=== PATIENT | male | born 2000 | race Caucasian/White ===

== ENCOUNTER 2021-04-02 11:09 | Emergency (ER) | payer MEDICAID ==
[~2021-04-02] VITALS: Ht 172.7 cm; Wt 98.9 kg
[2021-04-02 11:14] VITALS: BP 135/68
--- NOTE | 2021-04-02 11:30 | NUR ---
DR. FREY BEDSIDE EVAULUATING PT
--- NOTE | 2021-04-02 11:30 | NUR ---
20 Y/O M BIB MOTHER FROM HOME, C/O N/V/D AND "ANXIETY AND PAIN ON MY RIGHT SIDE WHEN I POOP" FOR 2 WEEKS. PT STATES HE EXPERINCES PAIN ON HIS R SIDE THAT RADIATES ACROSS HIS ENTIRE ABDOMEN. PT STATES THE PAIN HAS BEEN THERE X2 WEEKS AND FOR THE LAST WEEK HE HAS BEEN EXPERICING DIARRHEA. PT STATES SINCE FRIDAY HE HAS +N/+V WITH X2-3 EPISODES OF VOMITTING A DAY SINCE FRIDAY. PT STATES "THIS MORNING THE VOMIT HAS A RED TINGE, WHEN NORMALLY IT IS YELLOW" PMH: GASTRITIS MED: DENIES NKA
--- NOTE | 2021-04-02 12:04 | NUR ---
US BEDSIDE WITH PT.
--- NOTE | 2021-04-02 12:07 | NUR ---
BLOOD TAKEN BEDSIDE AND WALKED OVER TO LAB
[2021-04-02 12:12] LABS: BASOPHILS % (AUTO) 0.4 % (0.0-2.0); EOSINOPHILS # (AUTO) 0.1 K/uL (0-0.4); EOSINOPHILS % (AUTO) 1.1 % (0.0-4.0); HEMATOCRIT 45.1 % (36-52); HEMOGLOBIN 15.1 g/dL (12.0-18.0); LYMPHOCYTES # (AUTO) 2.1 K/uL (2.0-11.5); LYMPHOCYTES % (AUTO) 32.8 % (20.5-51.1); MEAN CORPUSCULAR HEMOGLOBIN 32 pg (27-31); MEAN CORPUSCULAR HGB CONC 34 g/dL (33-37); MEAN CORPUSCULAR VOLUME 94.2 fL (80-94); MONOCYTES # (AUTO) 0.4 K/uL (0.8-1.0); MONOCYTES % (AUTO) 6.3 % (1.7-9.3); NEUTROPHILS # (AUTO) 3.9 K/uL (1.8-7.7); NEUTROPHILS % (AUTO) 59.4 % (42.2-75.2); PLATELET COUNT (AUTO) 243 K/uL (140-450); RED BLOOD CELL COUNT(AUTO) 4.78 MIL/uL (4.20-6.10); RED CELL DISTRIBUTION WIDTH 12.9 % (11.6-13.7); WHITE BLOOD COUNT (AUTO) 6.5 K/uL (4.5-11.0)
[2021-04-02 12:33] LABS: ALBUMIN 4.3 g/dL (3.4-5.0); ANION GAP 8.2 (8-16); CARBON DIOXIDE 29.9 mmol/L (21-32); CREATININE 0.9 mg/dL (0.6-1.3); POTASSIUM 4.1 mmol/L (3.5-5.1); TOTAL BILIRUBIN 0.3 mg/dL (0.0-1.0)
[2021-04-02] MEDS ORDERED: PANT40EC PO (12:36)
[2021-04-02] MEDS ORDERED: ONDA-24 PO (12:36)
--- NOTE | 2021-04-02 12:55 | NUR ---
PT AMBULATED TO RESTROOM. GAIT STEADY
--- NOTE | 2021-04-02 12:59 | NUR ---
PT AMBULATED TO BED 11. GAIT STEADY
--- NOTE | 2021-04-02 13:09 | NUR ---
Pt sitting on bed, VSS, will continue to monitor.
[2021-04-02 13:20] VITALS: BP 127/72
--- NOTE | 2021-04-02 13:20 | NUR ---
Patient discharged with v/s stable. Written and verbal after care instructions given GASTRITIS and explained. Patient alert, oriented and verbalized understanding of instructions. Ambulatory with steady gait. All questions addressed prior to discharge. ID band removed. Patient advised to follow up with PMD. Rx of PANTOPRAZOLE 40MG PO DAILY, AND ZOFRAN ODT 4MG PO Q8H PRN N/V given. Patient educated on indication of medication including possible reaction and side effects. Opportunity to ask questions provided and answered.
== END 2021-04-02 13:20 | disposition home or self-care (01) ==
LOC: MED 11:09
DX: K29.70 Gastritis, unspecified, without bleeding (principal); Z79.899 Other long term (current) drug therapy
CPT/HCPCS: 36415; 76705; 80053; 81002; 83690; 85025; 99284

== ENCOUNTER 2021-04-19 07:21 | Emergency (ER) | payer MEDICAID ==
[~2021-04-19] VITALS: Ht 175.3 cm; Wt 98.0 kg
[~2021-04-19 07:21] MED LIST: ONDA-24 PO; PANT40EC PO
[2021-04-19 07:24] VITALS: BP 136/83
--- NOTE | 2021-04-19 07:30 | NUR ---
PATIENT AMBULATED TO BED 8. HANDED ON URINE CUP.
--- NOTE | 2021-04-19 07:33 | NUR ---
Patient being evaluated by DR GEORGE at bedside.
[2021-04-19] MEDS ORDERED: DICYCLOMINE HCL LIQUID 20 MG, ALUMINUM HYD/MAG/SIMETHICONE 30 ML, LIDOCAINE VISCOUS 2% ... PO ONE ×3 (07:35)
[2021-04-19] MEDS ORDERED: ONDANSETRON 4 MG ODT PO ONE (07:35)
[2021-04-19] MEDS ORDERED: DICYCLOMINE HCL LIQUID 10 MG/5 ML UDC ONE (07:44)
[2021-04-19] MEDS ORDERED: ALUMINUM HYD/MAG/SIMETHICONE 30 ML UDC ONE (07:44)
--- NOTE | 2021-04-19 07:56 | NUR ---
20YO M C/O VOMITING SINCE THIS AM. PT REPORTS VOMITING BILE AND RED-COLORED VOMITUS, UNSURE IF IT WAS BLOOD. PT STATES THAT HE HAS BEEN EXPERIENCING LOSS OF APPETITE X 4 DAYS. ALSO COMPLAINS OF ABDOMINAL DISCOMFORT, BUT DENIES ABDOMINAL PAIN. LBM WAS YESTERDAY WITH HARD, SMALL STOOLS. IN ED, VSS. NO ACTIVE VOMITING NOTED. ABDOMEN TENDER ON RUQ AND LUQ. PT CHANGED INTO PT'S GOWN. ERMD MADE AWARE OF PT STATUS. PMH: GASTRITIS (1 MONTH AGO) MEDS: PANTOPRAZOLE, ONDANSETRON NKA
--- NOTE | 2021-04-19 08:49 | NUR ---
no pain at this time.
[2021-04-19 09:08] LABS: ANION GAP 13.3 (8-16); CARBON DIOXIDE 27.7 mmol/L (21-32); CREATININE 1.1 mg/dL (0.6-1.3)
[2021-04-19 09:14] LABS: ALBUMIN 3.9 g/dL (3.4-5.0); BASOPHILS % (AUTO) 0.4 % (0.0-2.0); EOSINOPHILS % (AUTO) 0.6 % (0.0-4.0); HEMATOCRIT 43.5 % (36-52); HEMOGLOBIN 14.9 g/dL (12.0-18.0); LYMPHOCYTES # (AUTO) 1.6 K/uL (2.0-11.5); LYMPHOCYTES % (AUTO) 25.2 % (20.5-51.1); MEAN CORPUSCULAR HEMOGLOBIN 32 pg (27-31); MEAN CORPUSCULAR HGB CONC 34 g/dL (33-37); MEAN CORPUSCULAR VOLUME 92.5 fL (80-94); MONOCYTES # (AUTO) 0.5 K/uL (0.8-1.0); MONOCYTES % (AUTO) 7.5 % (1.7-9.3); NEUTROPHILS # (AUTO) 4.2 K/uL (1.8-7.7); NEUTROPHILS % (AUTO) 66.3 % (42.2-75.2); PLATELET COUNT (AUTO) 238 K/uL (140-450); RED CELL DISTRIBUTION WIDTH 12.7 % (11.6-13.7); TOTAL BILIRUBIN 0.7 mg/dL (0.0-1.0); WHITE BLOOD COUNT (AUTO) 6.3 K/uL (4.5-11.0)
[2021-04-19] MEDS ORDERED: ONDA-24 PO (09:54)
[2021-04-19] MEDS ORDERED: MAG-27 PO (09:54)
[2021-04-19 10:15] VITALS: BP 136/83
--- NOTE | 2021-04-19 10:16 | NUR ---
Patient discharged with v/s stable. Written and verbal after care instructions given and explained. Patient alert, oriented and verbalized understanding of instructions. Ambulatory with steady gait. All questions addressed prior to discharge. ID band removed. Patient advised to follow up with PMD. Rx of SARA HILLIARD given. Patient educated on indication of medication including possible reaction and side effects. Opportunity to ask questions provided and answered.
== END 2021-04-19 10:16 | disposition home or self-care (01) ==
LOC: MED 07:21
DX: R10.10 Upper abdominal pain, unspecified (principal); R63.0 Anorexia
CPT/HCPCS: 36415; 80053; 83690; 85025; 99283; Q0162

== ENCOUNTER 2022-01-15 07:21 | Emergency (ER) | payer MEDICAID ==
[~2022-01-15] VITALS: Ht 175.3 cm; Wt 103.6 kg
[~2022-01-15 07:21] MED LIST changes: +MAG-27 PO; +ONDA-188 PO; -ONDA-24 PO
[2022-01-15 07:24] VITALS: BP 110/74
--- NOTE | 2022-01-15 07:28 | NUR ---
PT AMB TO BED 4.
--- NOTE | 2022-01-15 07:45 | NUR ---
DR. WATTS AT PT BEDSIDE FOR FURTHER EVALUATION.
--- NOTE | 2022-01-15 07:49 | NUR ---
21 Y/O MALE C/O LOWER BACK PAIN X 2 WEEKS S/P LIFTING HEAVY BOXES. DENIES DYSURIA. DENIES FEVER/CHILLS. DENIES N/V/D. PMH: GASTRITIS NKA
[2022-01-15] MEDS ORDERED: NAPR-1704 PO (07:55)
--- NOTE | 2022-01-15 08:01 | NUR ---
Patient discharged with v/s stable. Written and verbal after care instructions ABOUT ACUTE BACK PAIN AND BACK EXERCISES given and explained. Patient alert, oriented and verbalized understanding of instructions. Ambulatory with steady gait. All questions addressed prior to discharge. ID band removed. Patient advised to follow up with PMD. Rx of NAPROXEN given. Opportunity to ask questions provided and answered.
[2022-01-15 08:03] VITALS: BP 110/74
--- NOTE | 2022-01-15 08:06 | NUR ---
The patient's care was reviewed and supervised by Carina Osman RN.
== END 2022-01-15 08:01 | disposition home or self-care (01) ==
LOC: MED 07:21
DX: M54.50 Low back pain, unspecified (principal)
CPT/HCPCS: 99282

== ENCOUNTER 2022-07-13 03:06 | Emergency (ER) | payer MEDICAID ==
[~2022-07-13] VITALS: Ht 175.3 cm; Wt 109.9 kg
[~2022-07-13 03:06] MED LIST changes: +NAPR-1704 PO
[2022-07-13 03:19] VITALS: BP 133/80
--- NOTE | 2022-07-13 03:30 | NUR ---
PATIENT ESCORTED TO ROOM 10, MOTHER AT HIS SIDE
[2022-07-13 03:38] VITALS: BP 139/93
--- NOTE | 2022-07-13 03:53 | NUR ---
DR GEORGE AT BEDSIDE
[2022-07-13] MEDS ORDERED: NACL 0.9% 1,000 ML IV ONE (04:00)
[2022-07-13] MEDS ORDERED: METOCLOPRAMIDE 10 MG/2 ML INJ VIAL IVP ONE (04:00)
[2022-07-13] MEDS ORDERED: MORPHINE SULFATE 4 MG/ML SYR IVP ONE (04:00)
[2022-07-13] MEDS ORDERED: diphenhydrAMINE 50 MG/ML VIAL IVP ONE (04:00)
--- NOTE | 2022-07-13 04:00 | NUR ---
ASSUME CARE OF PT, PT C/O LEFT EYE PAIN, STARTED WHILE HE WAS WATCHING TV, HX-MIGRAINS.
[2022-07-13] MEDS ORDERED: KETOROLAC 30 MG/ML VIAL IVP ONE (04:50)
--- NOTE | 2022-07-13 05:25 | NUR ---
PT STATES PAIN HAS REDUCE, STILL HAS SOME DIZZINESS.
[2022-07-13] MEDS ORDERED: ACET-9234 PO (05:35)
[2022-07-13] MEDS ORDERED: METO-485 PO (05:35)
--- NOTE | 2022-07-13 06:05 | NUR ---
Patient discharged with v/s stable. Written and verbal after care instructions given and explained. Patient alert, oriented and verbalized understanding of instructions. Ambulatory with steady gait. All questions addressed prior to discharge. ID band removed. Patient advised to follow up with PMD. Rx SENT TO PHARMACY. Patient educated on indication of medication including possible reaction and side effects. Opportunity to ask questions provided and answered.
[2022-07-13 06:08] VITALS: BP 128/64
== END 2022-07-13 06:00 | disposition home or self-care (01) ==
LOC: MED 03:06
DX: R51.9 Headache, unspecified (principal); R11.2 Nausea with vomiting, unspecified; Z79.899 Other long term (current) drug therapy
CPT/HCPCS: 70450; 96361; 96374; 96375; 99284; J1200; J1885; J2765; J7030

== ENCOUNTER 2023-02-26 09:32 | Emergency (ER) | payer MEDICAID, OTHER ==
[~2023-02-26] VITALS: Ht 177.8 cm; Wt 114.3 kg
[~2023-02-26 09:32] MED LIST changes: +ACET-9234 PO; +METO-485 PO
[2023-02-26 09:36] VITALS: BP 132/63
--- NOTE | 2023-02-26 10:03 | NUR ---
MD at bedside assessing patient
[2023-02-26] MEDS ORDERED: FAMOTIDINE 20 MG TAB PO ONE (10:10)
[2023-02-26] MEDS ORDERED: ALUMINUM HYD/MAG/SIMETHICONE 30 ML UDC PO ONE (10:10)
[2023-02-26] MEDS ORDERED: OMEP40EC24 PO (10:12)
[2023-02-26] MEDS ORDERED: ONDA-188 PO (10:12)
[2023-02-26 10:26] VITALS: BP 130/63
--- NOTE | 2023-02-26 10:26 | NUR ---
Patient discharged with v/s stable. Written and verbal after care instructions given and explained. Patient alert, oriented and verbalized understanding of instructions. Ambulatory with steady gait. All questions addressed prior to discharge. ID band removed. Patient advised to follow up with PMD. Rx of prilosec and zofran given. Patient educated on indication of medication including possible reaction and side effects. Opportunity to ask questions provided and answered.
[2023-02-27] MEDS ORDERED: SUCR1TAB35 PO (11:50)
== END 2023-02-26 10:26 | disposition home or self-care (01) ==
LOC: MED 09:32
DX: K29.70 Gastritis, unspecified, without bleeding (principal); R11.2 Nausea with vomiting, unspecified; G43.909 Migraine, unspecified, not intractable, without status migrainosus; F12.90 Cannabis use, unspecified, uncomplicated; Z79.899 Other long term (current) drug therapy
CPT/HCPCS: 99283

== ENCOUNTER 2023-02-27 09:57 | Emergency (ER) | payer OTHER ==
[~2023-02-27] VITALS: Ht 177.8 cm; Wt 112.0 kg
[~2023-02-27 09:57] MED LIST changes: +OMEP40EC24 PO
[2023-02-27 09:58] VITALS: BP 131/88
[2023-02-27] MEDS ORDERED: FAMOTIDINE 20 MG TAB PO ONE (10:45)
[2023-02-27] MEDS ORDERED: ALUMINUM HYD/MAG/SIMETHICONE 30 ML UDC PO ONE (10:45)
--- NOTE | 2023-02-27 11:03 | NUR ---
Pt bibs for abd pain that continued from yesterday. Pt states he wakes up with the pain that he believes is caused by vomiting. Pt has woken up vomiting the past two days. States he has had this issue before and was relieved with zofran. Pt states he is out of zofran. PT a/o x 4, vss, no ss of acute distress, breathing equal and unlabored, speech clear. Medicated as ordered, tolerating well.
[2023-02-27] MEDS ORDERED: SUCR1TAB35 PO (11:50)
[2023-02-27 12:16] VITALS: BP 128/81
--- NOTE | 2023-02-27 12:18 | NUR ---
spoke with pt and gave order for dc. Pt a/o x 4, vss, no ss of acute distress, breathing equal and unlabored, speech clear. Pt states pain has subsided to 09/24. ACI given and reviewed with pt, verbalized understanding and will follow up with primary. Pt aware of px pick and location.
== END 2023-02-27 12:16 | disposition home or self-care (01) ==
LOC: MED 09:57
DX: R10.13 Epigastric pain (principal); R11.2 Nausea with vomiting, unspecified; K21.9 Gastro-esophageal reflux disease without esophagitis; F12.90 Cannabis use, unspecified, uncomplicated; Z79.899 Other long term (current) drug therapy; Z79.1 Long term (current) use of non-steroidal anti-inflammatories (NSAID)
CPT/HCPCS: 99283

== ENCOUNTER 2023-07-04 10:38 | Emergency (ER) | payer OTHER ==
[~2023-07-04] VITALS: Ht 177.8 cm; Wt 108.9 kg
[~2023-07-04 10:38] MED LIST changes: +SUCR1TAB35 PO
[2023-07-04 10:42] VITALS: BP 114/63; PULSE 77; RESP 18; TEMP 97.8; O2SAT 97
[2023-07-04] MEDS ORDERED: ONDANSETRON 4 MG ODT PO ONE (12:20)
[2023-07-04 12:43] LABS: BASOPHILS % (AUTO) 0.2 % (0.0-2.0); EOSINOPHILS # (AUTO) 0.1 K/uL (0-0.4); EOSINOPHILS % (AUTO) 0.6 % (0.0-4.0); HEMATOCRIT 44.4 % (36-52); HEMOGLOBIN 15.2 g/dL (12.0-18.0); LYMPHOCYTES # (AUTO) 1.8 K/uL (2.0-11.5); LYMPHOCYTES % (AUTO) 20.2 % (20.5-51.1); MEAN CORPUSCULAR HEMOGLOBIN 31 pg (27-31); MEAN CORPUSCULAR HGB CONC 34 g/dL (33-37); MEAN CORPUSCULAR VOLUME 91.9 fL (80-94); MONOCYTES # (AUTO) 0.5 K/uL (0.8-1.0); MONOCYTES % (AUTO) 6.1 % (1.7-9.3); NEUTROPHILS # (AUTO) 6.5 K/uL (1.8-7.7); NEUTROPHILS % (AUTO) 72.9 % (42.2-75.2); PLATELET COUNT (AUTO) 253 K/uL (140-450); RED BLOOD CELL COUNT(AUTO) 4.83 MIL/uL (4.20-6.10); WHITE BLOOD COUNT (AUTO) 8.9 K/uL (4.8-10.8)
[2023-07-04 12:56] LABS: ALBUMIN 4.2 g/dL (3.4-5.0); ANION GAP 11.7 (8-16); CALCIUM 9.6 mg/dL (8.5-10.1); CARBON DIOXIDE 29.8 mmol/L (21-32); POTASSIUM 4.5 mmol/L (3.5-5.1); TOTAL BILIRUBIN 0.7 mg/dL (0.0-1.0); TOTAL PROTEIN, SERUM 8.1 g/dL (6.4-8.2)
[2023-07-04 13:41] VITALS: BP 112/63; PULSE 77; RESP 18; TEMP 97.8; O2SAT 99
== END 2023-07-04 13:41 | disposition home or self-care (01) ==
LOC: MED 10:38
DX: K92.0 Hematemesis (principal); K29.70 Gastritis, unspecified, without bleeding; Z79.899 Other long term (current) drug therapy
CPT/HCPCS: 36415; 80053; 83690; 85025; 99283; Q0162

== ENCOUNTER 2023-10-02 15:11 | Emergency (ER) | payer OTHER ==
[~2023-10-02] VITALS: Ht 177.8 cm; Wt 99.8 kg
[2023-10-02 15:31] VITALS: BP 117/72; PULSE 94; RESP 16; TEMP 97.4; O2SAT 98
[2023-10-02] MEDS ORDERED: CYCL-711 PO (15:38)
[2023-10-02] MEDS ORDERED: NAPR-54 PO (15:38)
== END 2023-10-02 15:44 | disposition home or self-care (01) ==
LOC: MED 15:11
DX: M54.50 Low back pain, unspecified (principal); K21.9 Gastro-esophageal reflux disease without esophagitis; Z79.899 Other long term (current) drug therapy; V49.88XA Car occupant (driver) (passenger) injured in other specified transport accidents, initial encounter; Y93.89 Activity, other specified; Y92.89 Other specified places as the place of occurrence of the external cause; Y99.8 Other external cause status
CPT/HCPCS: 99283